=== PATIENT | female | born 1980 | race Caucasian/White ===

== ENCOUNTER 2020-03-08 07:53 | Outpatient (CLI) | payer BC, MEDICAID, OTHER ==
[2020-03-08 08:03] VITALS: BP 134/88
[2020-03-08] MEDS ORDERED: FERUMOXYTOL 510 MG in NORMAL SALINE 100 ML IV PRN (08:30)
[2020-03-08] MEDS ORDERED: NORMAL SALINE 250 ML IV PRN (08:30)
== END 2020-03-08 09:30 | disposition home or self-care (01) ==
LOC: II 07:53 → 5TH 07:58 → II 09:30
PROVIDERS: ATTEND Internal Medicine Hematology & Oncology
DX: D50.9 Iron deficiency anemia, unspecified (principal); K90.9 Intestinal malabsorption, unspecified
CPT/HCPCS: 96365; Q0138; J7050

== ENCOUNTER 2020-03-15 08:05 | Outpatient (CLI) | payer BC ==
[~2020-03-15 08:05] MED LIST: FERUMOXYTOL (NON-ESRD) 510 MG/NS 100 ML IV PRN; NORMAL SALINE 250 ML IV PRN
[2020-03-15 08:20] VITALS: BP 125/80
== END 2020-03-15 09:00 | disposition home or self-care (01) ==
LOC: II 08:05 → 5TH 08:07 → II 09:00
PROVIDERS: ATTEND Internal Medicine Hematology & Oncology
DX: D50.9 Iron deficiency anemia, unspecified (principal); K90.9 Intestinal malabsorption, unspecified
CPT/HCPCS: 96365; Q0138; J7050